=== PATIENT | male | born 1980 | race Caucasian/White ===

== ENCOUNTER 2019-06-20 20:24 | Emergency (ER) | payer MEDICARE ==
[~2019-06-20] VITALS: Ht 177.8 cm; Wt 109.0 kg
[2019-06-20 20:36] VITALS: BP 136/94
== END 2019-06-21 01:53 | disposition left against medical advice (07) ==
LOC: ER 20:24
DX: Z53.21 Procedure and treatment not carried out due to patient leaving prior to being seen by health care provider (principal)